=== PATIENT | female | born 1940 | race Caucasian/White ===

== ENCOUNTER 2016-04-28 16:14 | Observation (INO) ==
[2016-04-28 17:20] LABS: Basophils % 0.6 %; Eosinophils # 0.2 K/mcL (0.0-0.6); Eosinophils % 2.9 %; Hemoglobin 12.9 g/dL (11.5-15.4); Immature Granulocytes % 0.1 % (0-4); Lymphocytes # 2.5 K/mcL (0.6-4.6); Lymphocytes % 36.4 %; Mean Corpuscular HGB Conc 32.3 g/dL (31.6-35.5); Mean Corpuscular Hemoglobin 29.9 pg (28.0-33.3); Mean Corpuscular Volume 92.8 fL (83.0-100.0); Mean Platelet Volume 9.4 fL (9.4-12.4); Monocytes # 0.5 K/mcL (0.0-1.3); Monocytes % 7.7 %; Neutrophils # 3.6 K/mcL (1.6-8.9); Platelet Count 250 K/mcL (140-400); Red Blood Count 4.31 M/mcL (3.82-4.97); Red Cell Distribution Width 13.1 % (11.5-14.5); Segmented Neutrophils % 52.3 %
[2016-04-28 17:32] LABS: Prothrombin Time 11.2 Seconds (9.4-12.1)
[2016-04-28 17:33] LABS: BUN/Creatinine Ratio 16 (6-26); Blood Urea Nitrogen 12 mg/dL (7-20); Calcium 8.8 mg/dL (8.6-10.8); Carbon Dioxide 29 mEq/L (19-29); Chloride 107 mEq/L (98-109); Glucose 83 mg/dL (70-99); Osmolality,Calculated 295 (280-300); Potassium 4.2 mEq/L (3.5-4.5); Sodium 143 mEq/L (136-145); eGFR For African Americans > 60 (> 60); eGFR For Non-African Americans > 60 (> 60)
[2016-04-28 17:35] LABS: Activated Partial Thrombo Time 30.2 Seconds (26.0-36.0)
[2016-04-29 05:44] LABS: Basophils % 0.6 %; Eosinophils # 0.2 K/mcL (0.0-0.6); Eosinophils % 3.4 %; Hematocrit 38.4 % (35.3-44.9); Hemoglobin 12.3 g/dL (11.5-15.4); Immature Granulocytes % 0.1 % (0-4); Lymphocytes # 2.6 K/mcL (0.6-4.6); Lymphocytes % 38.7 %; Mean Corpuscular Hemoglobin 29.8 pg (28.0-33.3); Mean Platelet Volume 9.8 fL (9.4-12.4); Monocytes # 0.5 K/mcL (0.0-1.3); Monocytes % 7.9 %; Neutrophils # 3.4 K/mcL (1.6-8.9); Platelet Count 237 K/mcL (140-400); Red Blood Count 4.13 M/mcL (3.82-4.97); Red Cell Distribution Width 13.2 % (11.5-14.5); Segmented Neutrophils % 49.3 %
[2016-04-29 05:57] LABS: BUN/Creatinine Ratio 16 (6-26); Blood Urea Nitrogen 12 mg/dL (7-20); Calcium 8.8 mg/dL (8.6-10.8); Carbon Dioxide 27 mEq/L (19-29); Chloride 107 mEq/L (98-109); Glucose 80 mg/dL (70-99); Osmolality,Calculated 295 (280-300); Potassium 3.6 mEq/L (3.5-4.5); Sodium 143 mEq/L (136-145); eGFR For African Americans > 60 (> 60); eGFR For Non-African Americans > 60 (> 60)
[2016-04-29 11:44] VITALS: BP 124/72
== END 2016-04-29 14:39 | disposition home or self-care (01) ==
LOC: 3BNU 16:14 → EMEROO 16:14 → 3BNU 19:36
PROVIDERS: ADMIT Internal Medicine; ATTEND Nurse Practitioner Family

== ENCOUNTER 2019-01-23 11:19 | Observation (INO) ==
[2019-01-23] MEDS ORDERED: Nitroglycerin 0.4 MG TAB.SUBL SL PRN (14:28)
[2019-01-23] MEDS ORDERED: *HR* Heparin 5,000 UNIT/ML VIAL IVP PRN ×4 (14:31→18:00)
[2019-01-23] MEDS ORDERED: *HR* Heparin 5,000 UNIT/ML VIAL IVP ONE (14:31)
[2019-01-23] MEDS ORDERED: Heparin 25,000 UNIT/250 ML D5W 25,000 UNIT/250 ML IV.SOLN IVC SCH ×2 (14:45→18:00)
[2019-01-23 15:16] LABS: Hemoglobin 12.4 g/dL (11.5-15.4); Mean Corpuscular HGB Conc 32.6 g/dL (31.6-35.5); Mean Corpuscular Hemoglobin 31.1 pg (28.0-33.3); Mean Corpuscular Volume 95.2 fL (83.0-100.0); Mean Platelet Volume 9.8 fL (9.4-12.4); Platelet Count 258 K/mcL (140-400); Red Blood Count 3.99 M/mcL (3.82-4.97); Red Cell Distribution Width 14.5 % (11.5-14.5); White Blood Count 4.1 K/mcL (4.3-11.1)
[2019-01-23 15:23] LABS: Heparin anti-factor XA UFH 0.43 IU/mL (0.30-0.70)
[2019-01-23 15:24] LABS: INR 1.1; Prothrombin Time 12.9 Seconds (9.4-12.1)
[2019-01-23 15:44] LABS: Troponin I 0.46 ng/mL (< 0.04)
[2019-01-23 16:20] LABS: Alanine Aminotransferase 14 Units/L (7-52); Albumin 3.8 g/dL (3.5-5.7); Albumin/Globulin Ratio 1.5 (1.1-2.2); Alkaline Phosphatase 43 Units/L (34-104); Aspartate Amino Transferase 21 Units/L (13-39); BUN/Creatinine Ratio 17 (6-26); Bilirubin,Total 0.5 mg/dL (0.3-1.0); Blood Urea Nitrogen 13 mg/dL (8-23); Calcium 9.1 mg/dL (8.6-10.3); Carbon Dioxide 28 mEq/L (23-29); Chloride 106 mEq/L (98-107); Globulin 2.5 g/dL (2.4-3.5); Glucose 83 mg/dL (70-105); Magnesium 2.1 mg/dL (1.6-2.6); Osmolality,Calculated 295 (280-300); Potassium 3.7 mEq/L (3.5-5.1); Sodium 143 mEq/L (136-145); Total Protein 6.3 g/dL (6.4-8.9); eGFR For African Americans > 60 (> 60); eGFR For Non-African Americans > 60 (> 60)
[2019-01-23] MEDS: *HR* LORazepam 0.5 MG TABLET PO PRN (21:36)
[2019-01-23] MEDS: Melatonin 3 MG TABLET PO PRN (21:36)
[2019-01-24 03:18] LABS: Basophils % 0.9 %; Eosinophils # 0.2 K/mcL (0.0-0.6); Hematocrit 35.9 % (35.3-44.9); Hemoglobin 11.8 g/dL (11.5-15.4); Immature Granulocytes % 0.2 % (0-4); Lymphocytes # 2.4 K/mcL (0.6-4.6); Lymphocytes % 55.4 %; Mean Corpuscular HGB Conc 32.9 g/dL (31.6-35.5); Mean Corpuscular Hemoglobin 31.2 pg (28.0-33.3); Mean Platelet Volume 9.9 fL (9.4-12.4); Monocytes # 0.2 K/mcL (0.0-1.3); Neutrophils # 1.5 K/mcL (1.6-8.9); Platelet Count 236 K/mcL (140-400); Red Blood Count 3.78 M/mcL (3.82-4.97); Red Cell Distribution Width 14.4 % (11.5-14.5); Segmented Neutrophils % 35.5 %; White Blood Count 4.3 K/mcL (4.3-11.1)
[2019-01-24 03:24] LABS: INR 1.1; Prothrombin Time 12.6 Seconds (9.4-12.1)
[2019-01-24 03:41] LABS: Alanine Aminotransferase 12 Units/L (7-52); Albumin 3.4 g/dL (3.5-5.7); Albumin/Globulin Ratio 1.5 (1.1-2.2); Alkaline Phosphatase 36 Units/L (34-104); Aspartate Amino Transferase 18 Units/L (13-39); BUN/Creatinine Ratio 18 (6-26); Bilirubin,Total 0.5 mg/dL (0.3-1.0); Blood Urea Nitrogen 13 mg/dL (8-23); Calcium 8.7 mg/dL (8.6-10.3); Carbon Dioxide 27 mEq/L (23-29); Chloride 108 mEq/L (98-107); Globulin 2.2 g/dL (2.4-3.5); Glucose 85 mg/dL (70-105); Osmolality,Calculated 293 (280-300); Potassium 3.4 mEq/L (3.5-5.1); Sodium 142 mEq/L (136-145); Total Protein 5.6 g/dL (6.4-8.9); eGFR For African Americans > 60 (> 60); eGFR For Non-African Americans > 60 (> 60)
[2019-01-24] MEDS: Tiotropium 18 MCG inhalation IH SCH (07:39)
[2019-01-24] MEDS: Magnesium Oxide 400 MG TABLET PO SCH (08:46)
[2019-01-24] MEDS ORDERED: Aspirin 81 MG TAB.CHEW PO SCH (09:00)
[2019-01-24] MEDS ORDERED: Nitroglycerin 1,000 MCG/10 ML VIAL IV ONE (10:37)
[2019-01-24] MEDS ORDERED: *HR* Heparin 10,000 UNIT/10 ML VIAL ONE (10:37)
[2019-01-24] MEDS ORDERED: Heparin 1,000 UNITS/500 mL 500 ML ONE (10:37)
[2019-01-24] MEDS ORDERED: 0.9 % Sodium Chloride 2,000 ML ONE (10:37)
[2019-01-24] MEDS ORDERED: ISOVUE-370 200 ML INFUS..BTL ONE (10:37)
[2019-01-24] MEDS ORDERED: *HR* Midazolam HCl 2 MG/2 ML VIAL ONE (11:03)
[2019-01-24] MEDS ORDERED: Verapamil 5 MG/2 ML VIAL ONE (11:03)
[2019-01-24] MEDS ORDERED: Metoprolol XL (24 HR) Succ 50 MG TAB.ER.24H PO SCH (12:00)
[2019-01-24] MEDS ORDERED: Metoprolol XL (24 HR) Succ 25 MG TAB.ER.24H PO SCH (12:00)
[2019-01-24] MEDS: Apixaban 5 MG TABLET PO SCH ×2 (13:50→20:01)
[2019-01-24] MEDS: Melatonin 3 MG TABLET PO PRN (20:03)
[2019-01-24] MEDS: *HR* LORazepam 0.5 MG TABLET PO PRN (20:03)
[2019-01-24] MEDS ORDERED: Apixaban 5 MG TABLET PO SCH (21:00)
[2019-01-25 07:07] VITALS: BP 113/62
[2019-01-25] MEDS: Tiotropium 18 MCG inhalation IH SCH (07:43)
[2019-01-25] MEDS: Magnesium Oxide 400 MG TABLET PO SCH (08:36)
[2019-01-25] MEDS: Apixaban 5 MG TABLET PO SCH (08:36)
[2019-01-25] MEDS ORDERED: Metoprolol XL (24 HR) Succ 50 MG TAB.ER.24H PO SCH (09:00)
[2019-01-25] MEDS ORDERED: Aspirin Enteric Coated 81 MG Tablet PO SCH (09:00)
== END 2019-01-25 13:51 | disposition home or self-care (01) ==
LOC: 2NENU → SUATTDRO 13:19
PROVIDERS: ADMIT Family Medicine; ATTEND Internal Medicine

== ENCOUNTER 2021-03-29 18:53 | Inpatient (IN) ==
[2021-03-30] MEDS ORDERED: Naloxone 0.4 MG/ML INJ IVP PRN (00:31)
[2021-03-30] MEDS ORDERED: Ondansetron 4 MG/2 ML VIAL IVP PRN (00:31)
[2021-03-30] MEDS ORDERED: Melatonin 3 MG TABLET PO PRN (00:31)
[2021-03-30 01:26] LABS: Hemoglobin 7.7 g/dL (11.5-15.4); Immature Granulocytes % 0.3 % (0-4)
[2021-03-30] MEDS ORDERED: Ipratropium/Albuterol Neb 3 ML ONE (01:27)
[2021-03-30 01:28] LABS: Basophils % 0.8 %; Eosinophils # 0.1 K/mcL (0.0-0.6); Hematocrit 28.5 % (35.3-44.9); Lymphocytes # 0.9 K/mcL (0.6-4.6); Lymphocytes % 25.1 %; Mean Corpuscular Hemoglobin 20.5 pg (28.0-33.3); Mean Platelet Volume 10.8 fL (9.4-12.4); Monocytes # 0.2 K/mcL (0.0-1.3); Monocytes % 5.5 %; Neutrophils # 2.4 K/mcL (1.6-8.9); Platelet Count 297 K/mcL (140-400); Red Blood Count 3.75 M/mcL (3.82-4.97); Red Cell Distribution Width 20.1 % (11.5-14.5); Segmented Neutrophils % 65.3 %; White Blood Count 3.6 K/mcL (4.3-11.1)
[2021-03-30] MEDS: Ipratropium/Albuterol Neb 3 ML IH SCH ×2 (01:30→08:26)
[2021-03-30 01:43] LABS: INR 1.1; Prothrombin Time 12.4 Seconds (9.4-12.1)
[2021-03-30] MEDS ORDERED: *HR* LORazepam 0.5 MG TABLET PO ONE (01:45)
[2021-03-30 01:46] LABS: Activated Partial Thrombo Time 28.8 Seconds (26.0-36.0)
[2021-03-30 01:48] LABS: Alanine Aminotransferase 23 Units/L (7-52); Albumin 3.5 g/dL (3.5-5.7); Alkaline Phosphatase 139 Units/L (34-104); Aspartate Amino Transferase 25 Units/L (13-39); BUN/Creatinine Ratio 21 (6-26); Bilirubin,Total 0.6 mg/dL (0.3-1.0); Blood Urea Nitrogen 11 mg/dL (8-23); Carbon Dioxide 36 mEq/L (23-29); Chloride 99 mEq/L (98-107); Globulin 3.6 g/dL (2.4-3.5); Glucose 87 mg/dL (70-105); Osmolality,Calculated 285 (280-300); Potassium 3.9 mEq/L (3.5-5.1); Sodium 138 mEq/L (136-145); Total Protein 7.1 g/dL (6.4-8.9); eGFR For African Americans > 60 (> 60); eGFR For Non-African Americans > 60 (> 60)
[2021-03-30 01:53] LABS: Hypochromasia Present (Not Present)
[2021-03-30 01:54] LABS: Anisocytosis 2+ (Not Present); Platelet Estimate Normal (Normal)
[2021-03-30 05:25] LABS: Red Blood Count 3.65 M/mcL (3.82-4.97)
[2021-03-30 05:27] LABS: Hematocrit 27.7 % (35.3-44.9); Hemoglobin 7.5 g/dL (11.5-15.4); Mean Corpuscular HGB Conc 27.1 g/dL (31.6-35.5); Mean Corpuscular Hemoglobin 20.5 pg (28.0-33.3); Mean Corpuscular Volume 75.9 fL (83.0-100.0); Mean Platelet Volume 11.4 fL (9.4-12.4); Platelet Count 301 K/mcL (140-400); Red Cell Distribution Width 20.2 % (11.5-14.5); White Blood Count 3.4 K/mcL (4.3-11.1)
[2021-03-30 05:47] LABS: BUN/Creatinine Ratio 21 (6-26); Blood Urea Nitrogen 11 mg/dL (8-23); Carbon Dioxide 38 mEq/L (23-29); Chloride 97 mEq/L (98-107); Glucose 76 mg/dL (70-105); Osmolality,Calculated 282 (280-300); Potassium 3.8 mEq/L (3.5-5.1); Sodium 137 mEq/L (136-145); eGFR For African Americans > 60 (> 60); eGFR For Non-African Americans > 60 (> 60)
[2021-03-30] MEDS ORDERED: Pantoprazole 40 MG VIAL IVP ONE (08:36)
[2021-03-30] MEDS: 0.9 % Sodium Chloride 1,000 ML IVC SCH ×2 (08:42→15:39)
[2021-03-30] MEDS ORDERED: Acetaminophen 325 MG TABLET PO ONE (09:59)
[2021-03-30] MEDS ORDERED: 0.9 % Sodium Chloride 1,000 ML IVC ONE (11:32)
[2021-03-30] MEDS: Levalbuterol Neb 1.25 MG/3 ML IH SCH ×4 (11:48→23:38)
[2021-03-30 12:12] LABS: Hematocrit 27.4 % (35.3-44.9); Hemoglobin 7.4 g/dL (11.5-15.4)
[2021-03-30] MEDS ORDERED: *HR* LORazepam 0.5 MG TABLET PO PRN (12:13)
[2021-03-30] MEDS ORDERED: D5% in Water 1,000 ML IVC PRN (12:33)
[2021-03-30] MEDS ORDERED: Dextrose Gel 15 GM/37.5 ML TUBE PO PRN ×2 (12:33)
[2021-03-30] MEDS ORDERED: 0.9 % Sodium Chloride 250 ML IVC ONE (12:34)
[2021-03-30] MEDS: *HR* Dextrose 50 % in Water (Syg) 50 ML SYRINGE IVP PRN (12:41)
[2021-03-30] MEDS ORDERED: Isovue-370 500 ML BOTTLE IVP ONE (13:18)
[2021-03-30] MEDS ORDERED: Amiodarone Premix 150 MG/100 ML BAG IVPB ONE (13:27)
[2021-03-30] MEDS ORDERED: Amiodarone Premix 360 MG/200 ML BAG IVC ONE (13:27)
[2021-03-30] MEDS ORDERED: Perflutren Lipid Microsphere 1.3 ML in 0.9 % Sodium Chloride 8.7 ML IVP PRN (13:46)
[2021-03-30] MEDS ORDERED: SODIUM CHLORIDE/NAHCO3/KCL/PEG 4,000 ML SOLN.RECON PO ONE (17:00)
[2021-03-30 17:03] LABS: Hematocrit 24.3 % (35.3-44.9); Hemoglobin 6.5 g/dL (11.5-15.4)
[2021-03-30 19:39] LABS: Hematocrit 25.4 % (35.3-44.9); Hemoglobin 6.9 g/dL (11.5-15.4)
[2021-03-30] MEDS: Amiodarone Premix 360 MG/200 ML BAG IVC SCH ×2 (20:26→22:27)
[2021-03-31 01:21] LABS: Eosinophils % 1.8 %; Nucleated Red Blood Cells 0.5 /100 WBC (0)
[2021-03-31 01:23] LABS: Eosinophils # 0.1 K/mcL (0.0-0.6); Hematocrit 30.2 % (35.3-44.9); Hemoglobin 8.2 g/dL (11.5-15.4); Immature Granulocytes % 0.3 % (0-4); Lymphocytes # 0.9 K/mcL (0.6-4.6); Lymphocytes % 21.7 %; Mean Corpuscular HGB Conc 27.2 g/dL (31.6-35.5); Mean Corpuscular Hemoglobin 21.2 pg (28.0-33.3); Mean Corpuscular Volume 78.2 fL (83.0-100.0); Mean Platelet Volume 10.4 fL (9.4-12.4); Monocytes # 0.3 K/mcL (0.0-1.3); Monocytes % 7.9 %; Neutrophils # 2.6 K/mcL (1.6-8.9); Platelet Count 232 K/mcL (140-400); Red Blood Count 3.86 M/mcL (3.82-4.97); Segmented Neutrophils % 67.3 %; White Blood Count 3.9 K/mcL (4.3-11.1)
[2021-03-31 01:37] LABS: BUN/Creatinine Ratio 26 (6-26); Blood Urea Nitrogen 16 mg/dL (8-23); Calcium 8.6 mg/dL (8.6-10.3); Carbon Dioxide 28 mEq/L (23-29); Chloride 101 mEq/L (98-107); Glucose 83 mg/dL (70-105); Magnesium 1.9 mg/dL (1.6-2.6); Osmolality,Calculated 284 (280-300); Phosphorous 4.4 mg/dL (2.7-4.5); Potassium 3.5 mEq/L (3.5-5.1); Sodium 137 mEq/L (136-145); eGFR For African Americans > 60 (> 60); eGFR For Non-African Americans > 60 (> 60)
[2021-03-31 02:35] LABS: Anisocytosis 2+ (Not Present); Stomatocytes 1+ (Not Present)
[2021-03-31 02:36] LABS: Hypochromasia Present (Not Present); Microcytosis Present (Not Present); Platelet Estimate Normal (Normal)
[2021-03-31] MEDS: Levalbuterol Neb 1.25 MG/3 ML IH SCH ×6 (03:43→23:48)
[2021-03-31] MEDS: 0.9 % Sodium Chloride 1,000 ML IVC SCH ×3 (05:47→21:35)
[2021-03-31 08:40] LABS: Hematocrit 29.9 % (35.3-44.9); Hemoglobin 8.3 g/dL (11.5-15.4)
[2021-03-31] MEDS: Metoprolol XL (24 HR) Succ 25 MG TAB.ER.24H PO SCH (09:04)
[2021-03-31] MEDS: Pantoprazole 40 MG VIAL IVP SCH (09:04)
[2021-03-31] MEDS: Multivit/Ca/Min/Fe/FA 1 TAB TABLET PO SCH (09:04)
[2021-03-31] MEDS: Cholecalciferol (D-3) 1,000 UNIT (25MCG) TABLET PO SCH (09:04)
[2021-03-31] MEDS ORDERED: SODIUM CHLORIDE/NAHCO3/KCL/PEG 4,000 ML SOLN.RECON PO ONE (17:00)
[2021-03-31 17:58] LABS: Hematocrit 29.4 % (35.3-44.9)
[2021-04-01] MEDS: *HR* Dextrose 50 % in Water (Syg) 50 ML SYRINGE IVP PRN (01:11)
[2021-04-01] MEDS ORDERED: Amiodarone Premix 150 MG/100 ML BAG IVPB ONE (02:19)
[2021-04-01] MEDS ORDERED: Amiodarone Premix 360 MG/200 ML BAG IVC ONE (02:25)
[2021-04-01] MEDS: Levalbuterol Neb 1.25 MG/3 ML IH SCH ×5 (04:20→20:45)
[2021-04-01 06:10] LABS: Hematocrit 36.5 % (35.3-44.9); Hemoglobin 9.5 g/dL (11.5-15.4)
[2021-04-01 06:32] LABS: BUN/Creatinine Ratio 35 (6-26); Blood Urea Nitrogen 20 mg/dL (8-23); Calcium 9.1 mg/dL (8.6-10.3); Carbon Dioxide 24 mEq/L (23-29); Chloride 103 mEq/L (98-107); Glucose 115 mg/dL (70-105); Osmolality,Calculated 288 (280-300); Sodium 137 mEq/L (136-145); eGFR For African Americans > 60 (> 60); eGFR For Non-African Americans > 60 (> 60)
[2021-04-01] MEDS ORDERED: Amiodarone Premix 360 MG/200 ML BAG IVC SCH (08:26)
[2021-04-01] MEDS: Multivit/Ca/Min/Fe/FA 1 TAB TABLET PO SCH (09:11)
[2021-04-01] MEDS: Pantoprazole 40 MG VIAL IVP SCH (09:11)
[2021-04-01] MEDS: Metoprolol XL (24 HR) Succ 25 MG TAB.ER.24H PO SCH (09:11)
[2021-04-01] MEDS: Cholecalciferol (D-3) 1,000 UNIT (25MCG) TABLET PO SCH (09:11)
[2021-04-01] MEDS ORDERED: Furosemide 20 MG/2 ML VIAL IVP ONE ×2 (12:26→21:34)
[2021-04-01] MEDS ORDERED: Lidocaine -MPF 2% 5 ML VIAL ONE (14:32)
[2021-04-01 23:04] LABS: ABG Base Excess 1 mEq/L (-2 to 3); ABG HCO3 33 mEq/L (21-27); ABG Oxygen Saturation 99 % (95-98); ABG PCO2 104 mmHg (35-45); ABG PH 7.11 pH Units (7.32-7.45); ABG PO2 189 mmHg (85-104); ABG TCO2 36 mEq/L (20-26); Blood Gas Modality avaps; Blood Gas VT 400 cc
[2021-04-02] MEDS: Levalbuterol Neb 1.25 MG/3 ML IH SCH ×4 (00:27→12:05)
[2021-04-02] MEDS ORDERED: Isovue-370 500 ML BOTTLE IVP ONE (00:27)
[2021-04-02 01:07] LABS: Hemoglobin 9.1 g/dL (11.5-15.4); Red Cell Distribution Width 20.6 % (11.5-14.5)
[2021-04-02 01:09] LABS: Basophils % 0.5 %; Hematocrit 35.6 % (35.3-44.9); Immature Granulocytes % 0.8 % (0-4); Immature Platelets 6.4 % (1.1-6.1); Lymphocytes # 0.4 K/mcL (0.6-4.6); Lymphocytes % 10.7 %; Mean Corpuscular HGB Conc 25.6 g/dL (31.6-35.5); Monocytes # 0.1 K/mcL (0.0-1.3); Monocytes % 3.6 %; Neutrophils # 3.3 K/mcL (1.6-8.9); Nucleated Red Blood Cells 1.3 /100 WBC (0); Platelet Count 144 K/mcL (140-400); Red Blood Count 4.14 M/mcL (3.82-4.97); Segmented Neutrophils % 84.4 %; White Blood Count 3.9 K/mcL (4.3-11.1)
[2021-04-02 01:21] LABS: BUN/Creatinine Ratio 32 (6-26); Blood Urea Nitrogen 25 mg/dL (8-23); Calcium 9.4 mg/dL (8.6-10.3); Carbon Dioxide 32 mEq/L (23-29); Chloride 101 mEq/L (98-107); Glucose 105 mg/dL (70-105); Osmolality,Calculated 295 (280-300); Phosphorous 6.3 mg/dL (2.7-4.5); Potassium 4.4 mEq/L (3.5-5.1); Sodium 140 mEq/L (136-145); eGFR For African Americans > 60 (> 60); eGFR For Non-African Americans > 60 (> 60)
[2021-04-02 01:34] LABS: Troponin I 0.13 ng/mL (< 0.04)
[2021-04-02] MEDS ORDERED: *HR* LORazepam 2 MG/ML VIAL ONE (01:52)
[2021-04-02] MEDS ORDERED: *HR* LORazepam 2 MG/ML VIAL IVP ONE (01:53)
[2021-04-02 02:00] LABS: ABG Base Excess 2 mEq/L (-2 to 3); ABG HCO3 34 mEq/L (21-27); ABG Oxygen Saturation 96 % (95-98); ABG PCO2 106 mmHg (35-45); ABG PH 7.11 pH Units (7.32-7.45); ABG PO2 112 mmHg (85-104); ABG TCO2 37 mEq/L (20-26)
[2021-04-02 03:05] LABS: Anisocytosis 3+ (Not Present); Hypochromasia Present (Not Present); Platelet Estimate Normal (Normal)
[2021-04-02 05:10] LABS: ABG Base Excess 4 mEq/L (-2 to 3); ABG HCO3 32 mEq/L (21-27); ABG Oxygen Saturation 88 % (95-98); ABG PCO2 69 mmHg (35-45); ABG PH 7.28 pH Units (7.32-7.45); ABG PO2 63 mmHg (85-104); ABG TCO2 35 mEq/L (20-26); Blood Gas Modality AVAPS; Blood Gas VT 400 cc
[2021-04-02] MEDS: Pantoprazole 40 MG VIAL IVP SCH (08:12)
[2021-04-02] MEDS: Multivit/Ca/Min/Fe/FA 1 TAB TABLET PO SCH (08:13)
[2021-04-02] MEDS: Cholecalciferol (D-3) 1,000 UNIT (25MCG) TABLET PO SCH (08:13)
[2021-04-02] MEDS: Metoprolol XL (24 HR) Succ 25 MG TAB.ER.24H PO SCH (10:16)
[2021-04-02 11:12] LABS: Lactate Dehydrogenase 228 Units/L (140-271); Total Protein 6.7 g/dL (6.4-8.9)
[2021-04-02 11:18] LABS: Troponin I 0.15 ng/mL (< 0.04)
[2021-04-02] MEDS ORDERED: Gadolinium Contrast Agent (WT Based) IV PRN (14:31)
[2021-04-02] MEDS ORDERED: Acetaminophen 325 MG TABLET PO PRN (15:52)
[2021-04-02] MEDS ORDERED: *HR* LORazepam 2 MG/ML VIAL IVP PRN (15:52)
[2021-04-02] MEDS ORDERED: Atropine Sulfate 1% 40 DROP/2 ML BOTTLE BOTH EYES PRN (15:55)
[2021-04-02] MEDS ORDERED: Haloperidol Lactate 5 MG/ML VIAL IVP PRN (15:57)
[2021-04-02] MEDS ORDERED: *HR* FentaNYL (PF) 100 MCG/2 ML VIAL IVP SCH ×2 (16:00→16:15)
[2021-04-02] MEDS ORDERED: Scopolamine Patch 1.5 MG PATCH.TD72 TD SCH (16:00)
[2021-04-02] MEDS: *HR* LORazepam 2 MG/ML VIAL IVP SCH ×3 (16:33→23:40)
[2021-04-02 18:39] VITALS: TEMP 98.5
[2021-04-03] MEDS: *HR* LORazepam 2 MG/ML VIAL IVP SCH (02:00)
[2021-04-03 08:03] VITALS: BP 116/63
[2021-04-03] MEDS ORDERED: *HR* FentaNYL (PF) 100 MCG/2 ML VIAL IVP PRN (10:45)
[2021-04-03] MEDS ORDERED: *HR* LORazepam 2 MG/ML VIAL IVP PRN (10:45)
[2021-04-03] MEDS ORDERED: Atropine Sulfate 1% 40 DROP/2 ML BOTTLE SL PRN (11:23)
[2021-04-03 13:11] VITALS: PULSE 148; O2SAT 30
== END 2021-04-03 18:30 | disposition expired | DRG 377 ==
LOC: 3ANU → SUATTDRO 23:58 → 2NNU 03-30 17:37
PROVIDERS: ADMIT Student in an Organized Health Care Education/Training Program; ATTEND Internal Medicine